=== PATIENT | male | born 2000 | race Caucasian/White ===

== ENCOUNTER 2023-01-12 12:20 | Outpatient (CLI) | payer BC | END 2023-01-12 12:21 | disposition home or self-care (01) | PROVIDERS: ATTEND Family Medicine | DX: R07.9 Chest pain, unspecified (principal); R68.89 Other general symptoms and signs | CPT/HCPCS: 93225; 93226 ==

== ENCOUNTER 2023-01-14 13:53 | Outpatient (CLI) | payer BC | END 2023-01-14 13:54 | disposition home or self-care (01) | LOC: ULT 13:53 | PROVIDERS: ATTEND Family Medicine | DX: R68.89 Other general symptoms and signs (principal); R07.9 Chest pain, unspecified | CPT/HCPCS: 93306 ==